=== PATIENT | female | born 1940 | race Caucasian/White ===

== ENCOUNTER 2016-04-25 09:19 | Outpatient (CLI) | payer MEDICARE, OTHER ==
[2016-04-25 12:30] LABS: Bilirubin Negative (Negative); Blood, Urine Negative (Negative); Glucose, Urine (Dipstick) Negative (Negative); Ketone, Urine Negative (Negative); Nitrite Negative (Negative); Protein, Urine (Dipstick) Negative (Neg-Trace); Urobilinogen 0.2 mg/dL (0.2-1.0)
[2016-04-25 12:37] LABS: #Basophils 0.1 thou/uL (0.0-0.2); #Eosinphils 0.3 thou/uL (0.0-0.7); #Lymphocytes 1.2 thou/uL (1.20-3.40); #Monocytes 0.4 thou/uL (0.11-0.59); #Neutrophils 2.4 thou/uL (1.40-6.50); %Basophils 1.6 % (0.0-1.0); %Eosinophils 6.9 % (0.0-10.0); %Lymphocytes 27.2 % (21.0-51.0); %Monocytes 8.3 % (0.0-10.0); Mean Platelet Volume 7.8 fL (7.4-10.4); Red Blood Cell (RBC) Count 4.12 mill/uL (4.20-5.40); White Blood Cell (WBC) Count 4.3 thou/uL (4.8-10.8)
[2016-04-25 12:56] LABS: ALT (SGPT) 12 U/L (0-55); AST (SGOT) 18 U/L (5-34); Alkaline Phosphatase 85 U/L (40-150); Anion Gap 15 mmol/L (10-20); BUN (Urea Nitrogen) 23 mg/dL (9.8-20.1); Bilirubin, Direct 0.2 mg/dL (0.1-0.3); Bilirubin, Total 0.5 mg/dL (0.2-1.2); Calc. Creatinine Clearance 0 mL/min (70-130); Calcium 9.8 mg/dL (7.8-10.44); Carbon Dioxide 25 mmol/L (23-31); Chloride 106 mmol/L (98-107); Estimated GFR-MDRD 68; LDL Cholesterol, Calculated 87 mg/dL; Protein, Total 6.5 g/dL (5.8-8.1)
[2016-04-25 13:17] LABS: Bacteria/HPF Rare-Few HPF (None Seen); RBC/HPF None Seen HPF (0-3); Squamous Epithelial 0-3 HPF (0-3); WBC/HPF 0-3 HPF (0-3)
== END 2016-04-25 09:20 | disposition home or self-care (01) ==
LOC: NAVSJIPCSP 09:19
PROVIDERS: ATTEND Family Medicine
DX: I10 Essential (primary) hypertension (principal)
CPT/HCPCS: 36415; 80048; 80061; 80076; 81003; 81015; 83036; 84443; 85025

== ENCOUNTER 2016-09-26 08:48 | Outpatient (CLI) | payer MEDICARE, OTHER ==
[2016-09-26 13:01] LABS: #Basophils 0.1 thou/uL (0.0-0.2); #Eosinphils 0.2 thou/uL (0.0-0.7); #Lymphocytes 1.1 thou/uL (1.20-3.40); #Monocytes 0.4 thou/uL (0.11-0.59); #Neutrophils 3.1 thou/uL (1.40-6.50); %Basophils 1.5 % (0.0-1.0); %Lymphocytes 23.2 % (21.0-51.0); %Monocytes 8.2 % (0.0-10.0); %Neutrophils 63.1 % (42.0-75.0); Hemoglobin 11.8 g/dL (12.0-16.0); Mean Corpuscular HGB CONC 31.2 g/dL (32.0-36.0); Mean Corpuscular Hemoglobin 27.9 pg (27.0-31.0); Mean Corpuscular Volume 89.2 fl (81.0-99.0); Mean Platelet Volume 7.7 fL (7.4-10.4); Platelet Count 169 thou/uL (130-400); RBC Distribution Width 13.9 % (11.5-14.5); Red Blood Cell (RBC) Count 4.25 mill/uL (4.20-5.40); White Blood Cell (WBC) Count 4.9 thou/uL (4.8-10.8)
[2016-09-26 14:00] LABS: ALT (SGPT) 14 U/L (8-55); AST (SGOT) 20 U/L (5-34); Albumin 3.9 g/dL (3.4-4.8); Alkaline Phosphatase 81 U/L (40-150); Anion Gap 14 mmol/L (10-20); BUN (Urea Nitrogen) 23 mg/dL (9.8-20.1); Bilirubin, Direct 0.3 mg/dL (0.1-0.3); Bilirubin, Total 0.6 mg/dL (0.2-1.2); Calc. Creatinine Clearance 0 mL/min (70-130); Calcium 10.3 mg/dL (7.8-10.44); Carbon Dioxide 27 mmol/L (23-31); Cardiac Risk 2.4 (Less than 4.5); Chloride 105 mmol/L (98-107); Cholesterol 160 mg/dl (< 200 Desired); Estimated GFR-MDRD 67; Glucose 151 mg/dL (83-110); HDL Cholesterol 68 mg/dL (>60 Neg Risk); LDL Cholesterol, Calculated 86 mg/dL; Potassium 4.7 mmol/L (3.5-5.1); Protein, Total 6.4 g/dL (6.0-8.3); Sodium 141 mmol/L (136-145); Triglycerides 32 mg/dL (Less than 150)
[2016-09-26 14:33] LABS: Hemoglobin A1c 7.1 % (4.0-6.0)
== END 2016-09-26 08:49 | disposition home or self-care (01) ==
LOC: NAVSJIPCSP 08:48
PROVIDERS: ATTEND Family Medicine
DX: E11.9 Type 2 diabetes mellitus without complications (principal); I10 Essential (primary) hypertension; M19.90 Unspecified osteoarthritis, unspecified site; F32.9 Major depressive disorder, single episode, unspecified; J30.9 Allergic rhinitis, unspecified; B02.23 Postherpetic polyneuropathy; Z79.899 Other long term (current) drug therapy
CPT/HCPCS: 36415; 80048; 80061; 80076; 83036; 84443; 85025

== ENCOUNTER 2022-12-06 09:35 | Inpatient (IN) | payer MEDICARE ==
[2022-12-06] MEDS ORDERED: Bisacodyl 5 MG TAB PO PRN (15:07)
[2022-12-06] MEDS ORDERED: Ondansetron ODT 4 MG TAB SL PRN (15:07)
[2022-12-06] MEDS ORDERED: Acetaminophen 325 MG TAB PO PRN (15:07)
[2022-12-06] MEDS ORDERED: Senokot S 8.6-50 MG TAB PO PRN (15:07)
[2022-12-06] MEDS ORDERED: Dextrose 50% Abboject 50 ML SYRINGE SLOW IVP PRN (15:15)
[2022-12-06] MEDS ORDERED: Glucagon 1 MG/ML KIT IM PRN (15:15)
[2022-12-06] MEDS ORDERED: HumaLOG 300 UNITS/3 ML VIAL ONE (17:13)
[2022-12-06] MEDS: FLUoxetine HCl 10 MG CAP PO SCH (20:49)
[2022-12-06] MEDS: Ciprofloxacin 500 MG TAB PO SCH (20:49)
[2022-12-06] MEDS: HumaLOG 300 UNITS/3 ML VIAL SC PRN (20:49)
[2022-12-06] MEDS: Gabapentin 300 MG CAP PO SCH (20:50)
[2022-12-06] MEDS ORDERED: Lantus 1000 UNITS/10 ML VIAL SC SCH (21:00)
[2022-12-06] MEDS ORDERED: Donepezil HCl 10 MG TAB PO SCH (21:00)
[2022-12-07] MEDS: Ciprofloxacin 500 MG TAB PO SCH ×2 (06:02→21:21)
[2022-12-07 06:03] LABS: #Basophils 0.1 thou/uL (0.0-0.2); #Eosinphils 0.4 thou/uL (0.0-0.7); #Lymphocytes 0.8 thou/uL (1.20-3.40); #Monocytes 0.5 thou/uL (0.11-0.59); #Neutrophils 4.4 thou/uL (1.40-6.50); %Basophils 1.3 % (0.0-1.0); %Eosinophils 5.8 % (0.0-10.0); %Lymphocytes 13.3 % (21.0-51.0); %Monocytes 7.6 % (0.0-10.0); Hematocrit 26.3 % (36.0-47.0); Hemoglobin 8.5 g/dL (12.0-16.0); Mean Corpuscular HGB CONC 32.1 g/dL (32.0-36.0); Mean Corpuscular Hemoglobin 27.8 pg (27.0-31.0); Mean Corpuscular Volume 86.7 fl (78.0-98.0); Mean Platelet Volume 7.3 fL (7.4-10.4); Platelet Count 273 10x3/uL (130-400); RBC Distribution Width 16.3 % (11.5-14.5); Red Blood Cell (RBC) Count 3.04 mill/uL (4.20-5.40); White Blood Cell (WBC) Count 6.1 10x3/uL (4.8-10.8)
[2022-12-07 06:17] LABS: ALT (SGPT) 29 U/L (8-55); AST (SGOT) 26 U/L (5-34); Albumin 2.5 g/dL (3.4-4.8); Alkaline Phosphatase 78 U/L (40-110); Anion Gap 9 mmol/L (10-20); BUN (Urea Nitrogen) 22 mg/dL (9.8-20.1); Bilirubin, Total 0.3 mg/dL (0.2-1.2); Calc. Creatinine Clearance 46 mL/min (70-130); Calcium 9.4 mg/dL (7.8-10.44); Carbon Dioxide 27 mmol/L (23-31); Chloride 104 mmol/L (98-107); Estimated GFR 64; Globulin 2.7 g/dL (2.4-3.5); Glucose 121 mg/dL (83-110); Potassium 4.1 mmol/L (3.5-5.1); Protein, Total 5.2 g/dL (5.8-8.1); Sodium 136 mmol/L (136-145)
[2022-12-07] MEDS: Pioglitazone HCl 15 MG TAB PO SCH (08:33)
[2022-12-07] MEDS: Lisinopril 20 MG TAB PO SCH (08:34)
[2022-12-07] MEDS: Gabapentin 300 MG CAP PO SCH ×2 (08:35→21:21)
[2022-12-07] MEDS: Aspirin 81 mg Enteric Coated Tablet PO SCH (08:36)
[2022-12-07] MEDS: Amlodipine 5 MG TAB PO SCH (08:36)
[2022-12-07] MEDS: HumaLOG 300 UNITS/3 ML VIAL SC PRN ×2 (12:28→16:56)
[2022-12-07] MEDS: Lantus 1000 UNITS/10 ML VIAL SC SCH (21:22)
[2022-12-07] MEDS: FLUoxetine HCl 10 MG CAP PO SCH (21:22)
[2022-12-08] MEDS: Ciprofloxacin 500 MG TAB PO SCH ×2 (06:09→21:47)
[2022-12-08] MEDS: Pioglitazone HCl 15 MG TAB PO SCH (07:52)
[2022-12-08] MEDS: Aspirin 81 mg Enteric Coated Tablet PO SCH (07:52)
[2022-12-08] MEDS: Amlodipine 5 MG TAB PO SCH (07:52)
[2022-12-08] MEDS: Lisinopril 20 MG TAB PO SCH (07:53)
[2022-12-08] MEDS: Gabapentin 300 MG CAP PO SCH ×2 (07:53→21:47)
[2022-12-08] MEDS: HumaLOG 300 UNITS/3 ML VIAL SC PRN ×2 (12:33→17:00)
[2022-12-08] MEDS: FLUoxetine HCl 10 MG CAP PO SCH (21:47)
[2022-12-08] MEDS: Lantus 1000 UNITS/10 ML VIAL SC SCH (21:48)
[2022-12-09] MEDS: Ciprofloxacin 500 MG TAB PO SCH (05:51)
[2022-12-09 09:14] LABS: #Basophils 0.1 thou/uL (0.0-0.2); #Eosinphils 0.3 thou/uL (0.0-0.7); #Lymphocytes 0.8 thou/uL (1.20-3.40); #Monocytes 0.4 thou/uL (0.11-0.59); #Neutrophils 4.7 thou/uL (1.40-6.50); %Basophils 1.2 % (0.0-1.0); %Eosinophils 4.2 % (0.0-10.0); %Lymphocytes 12.1 % (21.0-51.0); %Neutrophils 75.5 % (42.0-75.0); Hematocrit 33.1 % (36.0-47.0); Hemoglobin 10.2 g/dL (12.0-16.0); Mean Corpuscular HGB CONC 30.8 g/dL (32.0-36.0); Mean Corpuscular Hemoglobin 27.9 pg (27.0-31.0); Mean Corpuscular Volume 90.6 fl (78.0-98.0); Mean Platelet Volume 7.9 fL (7.4-10.4); Platelet Count 224 10x3/uL (130-400); Red Blood Cell (RBC) Count 3.65 mill/uL (4.20-5.40); White Blood Cell (WBC) Count 6.2 10x3/uL (4.8-10.8)
[2022-12-09 09:32] LABS: Anion Gap 13 mmol/L (10-20); BUN (Urea Nitrogen) 24 mg/dL (9.8-20.1); Calc. Creatinine Clearance 35 mL/min (70-130); Calcium 10.3 mg/dL (7.8-10.44); Carbon Dioxide 21 mmol/L (23-31); Chloride 105 mmol/L (98-107); Estimated GFR 45; Glucose 108 mg/dL (83-110); Sodium 135 mmol/L (136-145)
[2022-12-09] MEDS: Aspirin 81 mg Enteric Coated Tablet PO SCH (09:47)
[2022-12-09] MEDS: Amlodipine 5 MG TAB PO SCH (09:48)
[2022-12-09] MEDS: Pioglitazone HCl 15 MG TAB PO SCH (09:48)
[2022-12-09] MEDS: Lisinopril 20 MG TAB PO SCH (09:48)
[2022-12-09] MEDS: Gabapentin 300 MG CAP PO SCH ×2 (09:49→21:12)
[2022-12-09] MEDS: HumaLOG 300 UNITS/3 ML VIAL SC PRN ×2 (12:01→17:37)
[2022-12-09] MEDS: FLUoxetine HCl 10 MG CAP PO SCH (21:12)
[2022-12-09] MEDS: Lantus 1000 UNITS/10 ML VIAL SC SCH (21:13)
[2022-12-10] MEDS: Ciprofloxacin 500 MG TAB PO SCH (06:20)
[2022-12-10] MEDS ORDERED: [UNRECOGNIZED DRUG - REMARK] IVPB PRN (07:29)
[2022-12-10] MEDS: Pioglitazone HCl 15 MG TAB PO SCH (08:10)
[2022-12-10] MEDS: Aspirin 81 mg Enteric Coated Tablet PO SCH (08:11)
[2022-12-10] MEDS: Lisinopril 20 MG TAB PO SCH (08:11)
[2022-12-10] MEDS: Gabapentin 300 MG CAP PO SCH ×2 (08:11→19:27)
[2022-12-10] MEDS: Amlodipine 5 MG TAB PO SCH (08:12)
[2022-12-10] MEDS: HumaLOG 300 UNITS/3 ML VIAL SC PRN ×2 (12:03→16:44)
[2022-12-10] MEDS: FLUoxetine HCl 10 MG CAP PO SCH (19:27)
[2022-12-10] MEDS: Lantus 1000 UNITS/10 ML VIAL SC SCH (21:05)
[2022-12-11] MEDS: Ciprofloxacin 500 MG TAB PO SCH (05:51)
[2022-12-11] MEDS: Pioglitazone HCl 15 MG TAB PO SCH (15:21)
[2022-12-11] MEDS: Amlodipine 5 MG TAB PO SCH (15:22)
[2022-12-11] MEDS: Lisinopril 20 MG TAB PO SCH (15:22)
[2022-12-11] MEDS: Aspirin 81 mg Enteric Coated Tablet PO SCH (15:23)
[2022-12-11] MEDS: Gabapentin 300 MG CAP PO SCH ×2 (15:24→20:54)
[2022-12-11] MEDS: Lantus 1000 UNITS/10 ML VIAL SC SCH (20:54)
[2022-12-11] MEDS: FLUoxetine HCl 10 MG CAP PO SCH (20:54)
[2022-12-11] MEDS: HumaLOG 300 UNITS/3 ML VIAL SC PRN (20:55)
[2022-12-12] MEDS: Ciprofloxacin 500 MG TAB PO SCH ×2 (05:24→20:55)
[2022-12-12] MEDS: Lisinopril 20 MG TAB PO SCH (10:09)
[2022-12-12] MEDS: Amlodipine 5 MG TAB PO SCH (10:10)
[2022-12-12] MEDS: Pioglitazone HCl 15 MG TAB PO SCH (10:10)
[2022-12-12] MEDS: Aspirin 81 mg Enteric Coated Tablet PO SCH (10:10)
[2022-12-12] MEDS: Gabapentin 300 MG CAP PO SCH ×2 (10:11→20:55)
[2022-12-12] MEDS: HumaLOG 300 UNITS/3 ML VIAL SC PRN ×3 (11:23→21:34)
[2022-12-12] MEDS: FLUoxetine HCl 10 MG CAP PO SCH (20:55)
[2022-12-12] MEDS: Lantus 1000 UNITS/10 ML VIAL SC SCH (20:58)
[2022-12-13] MEDS: Ciprofloxacin 500 MG TAB PO SCH (06:00)
[2022-12-13] MEDS: HumaLOG 300 UNITS/3 ML VIAL SC PRN ×3 (06:08→16:41)
[2022-12-13] MEDS: Aspirin 81 mg Enteric Coated Tablet PO SCH (08:33)
[2022-12-13] MEDS: Gabapentin 300 MG CAP PO SCH ×2 (08:33→21:36)
[2022-12-13] MEDS: Pioglitazone HCl 15 MG TAB PO SCH (08:33)
[2022-12-13] MEDS: Lisinopril 20 MG TAB PO SCH (08:36)
[2022-12-13] MEDS: Amlodipine 5 MG TAB PO SCH (08:36)
[2022-12-13] MEDS: FLUoxetine HCl 10 MG CAP PO SCH (21:36)
[2022-12-13] MEDS: Lantus 1000 UNITS/10 ML VIAL SC SCH (21:36)
[2022-12-13] MEDS: Famotidine 20 MG TAB PO SCH (21:37)
[2022-12-14] MEDS: HumaLOG 300 UNITS/3 ML VIAL SC PRN ×3 (06:13→16:31)
[2022-12-14] MEDS: Ciprofloxacin 500 MG TAB PO SCH (06:13)
[2022-12-14] MEDS: Saccharomyces boulardii 250 MG CAP PO SCH (08:40)
[2022-12-14] MEDS: Gabapentin 300 MG CAP PO SCH ×2 (08:40→21:55)
[2022-12-14] MEDS: Pioglitazone HCl 15 MG TAB PO SCH (08:40)
[2022-12-14] MEDS: Lisinopril 20 MG TAB PO SCH (08:41)
[2022-12-14] MEDS: Amlodipine 5 MG TAB PO SCH (08:41)
[2022-12-14] MEDS: Lantus 1000 UNITS/10 ML VIAL SC SCH (21:54)
[2022-12-14] MEDS: FLUoxetine HCl 10 MG CAP PO SCH (21:54)
[2022-12-14] MEDS: Famotidine 20 MG TAB PO SCH (21:55)
[2022-12-15] MEDS: Ciprofloxacin 500 MG TAB PO SCH (07:00)
[2022-12-15] MEDS: Lisinopril 20 MG TAB PO SCH (08:38)
[2022-12-15] MEDS: Gabapentin 300 MG CAP PO SCH ×2 (08:38→21:00)
[2022-12-15] MEDS: Pioglitazone HCl 15 MG TAB PO SCH (08:38)
[2022-12-15] MEDS: Amlodipine 5 MG TAB PO SCH (08:39)
[2022-12-15] MEDS: Saccharomyces boulardii 250 MG CAP PO SCH (08:39)
[2022-12-15] MEDS: HumaLOG 300 UNITS/3 ML VIAL SC PRN (16:40)
[2022-12-15] MEDS: Lantus 1000 UNITS/10 ML VIAL SC SCH (21:00)
[2022-12-15] MEDS: Famotidine 20 MG TAB PO SCH (21:00)
[2022-12-15] MEDS: FLUoxetine HCl 10 MG CAP PO SCH (21:00)
[2022-12-16] MEDS: Ciprofloxacin 500 MG TAB PO SCH (06:11)
[2022-12-16 06:35] LABS: #Basophils 0.1 thou/uL (0.0-0.2); #Eosinphils 0.2 thou/uL (0.0-0.7); #Lymphocytes 0.7 thou/uL (1.20-3.40); #Monocytes 0.3 thou/uL (0.11-0.59); #Neutrophils 2.2 thou/uL (1.40-6.50); %Basophils 1.6 % (0.0-1.0); %Eosinophils 5.6 % (0.0-10.0); %Lymphocytes 19.3 % (21.0-51.0); %Monocytes 9.8 % (0.0-10.0); %Neutrophils 63.7 % (42.0-75.0); Hematocrit 28.4 % (36.0-47.0); Mean Corpuscular HGB CONC 31.5 g/dL (32.0-36.0); Mean Corpuscular Hemoglobin 28.2 pg (27.0-31.0); Mean Corpuscular Volume 89.3 fl (78.0-98.0); Mean Platelet Volume 8.8 fL (7.4-10.4); Platelet Count 193 10x3/uL (130-400); RBC Distribution Width 18.1 % (11.5-14.5); Red Blood Cell (RBC) Count 3.18 mill/uL (4.20-5.40); White Blood Cell (WBC) Count 3.4 10x3/uL (4.8-10.8)
[2022-12-16 06:41] LABS: Anion Gap 10 mmol/L (10-20); BUN (Urea Nitrogen) 28 mg/dL (9.8-20.1); Calc. Creatinine Clearance 40 mL/min (70-130); Calcium 10.2 mg/dL (7.8-10.44); Carbon Dioxide 25 mmol/L (23-31); Chloride 106 mmol/L (98-107); Estimated GFR 54; Glucose 96 mg/dL (83-110); Potassium 4.2 mmol/L (3.5-5.1); Sodium 137 mmol/L (136-145)
[2022-12-16] MEDS: Pioglitazone HCl 15 MG TAB PO SCH (08:33)
[2022-12-16] MEDS: Saccharomyces boulardii 250 MG CAP PO SCH (08:33)
[2022-12-16] MEDS: Amlodipine 5 MG TAB PO SCH (08:34)
[2022-12-16] MEDS: Gabapentin 300 MG CAP PO SCH ×2 (08:34→21:12)
[2022-12-16] MEDS: Lisinopril 20 MG TAB PO SCH (08:34)
[2022-12-16] MEDS: HumaLOG 300 UNITS/3 ML VIAL SC PRN ×2 (11:45→16:35)
[2022-12-16] MEDS: Famotidine 20 MG TAB PO SCH (21:12)
[2022-12-16] MEDS: FLUoxetine HCl 10 MG CAP PO SCH (21:12)
[2022-12-16] MEDS: Lantus 1000 UNITS/10 ML VIAL SC SCH (21:12)
[2022-12-17] MEDS: Ciprofloxacin 500 MG TAB PO SCH (06:03)
[2022-12-17 06:49] LABS: Hematocrit 29.4 % (36.0-47.0); Hemoglobin 9.3 g/dL (12.0-16.0); Platelet Count 203 10x3/uL (130-400)
[2022-12-17 06:53] LABS: Anion Gap 11 mmol/L (10-20); BUN (Urea Nitrogen) 33 mg/dL (9.8-20.1); Calc. Creatinine Clearance 30 mL/min (70-130); Calcium 10.3 mg/dL (7.8-10.44); Carbon Dioxide 25 mmol/L (23-31); Chloride 105 mmol/L (98-107); Estimated GFR 38; Glucose 133 mg/dL (83-110); Potassium 4.1 mmol/L (3.5-5.1); Sodium 137 mmol/L (136-145)
[2022-12-17] MEDS: Pioglitazone HCl 15 MG TAB PO SCH (08:48)
[2022-12-17] MEDS: Amlodipine 5 MG TAB PO SCH (08:48)
[2022-12-17] MEDS: Gabapentin 300 MG CAP PO SCH ×2 (08:49→20:09)
[2022-12-17] MEDS: Lisinopril 20 MG TAB PO SCH (08:49)
[2022-12-17] MEDS: Saccharomyces boulardii 250 MG CAP PO SCH (08:49)
[2022-12-17] MEDS: HumaLOG 300 UNITS/3 ML VIAL SC PRN ×2 (11:40→16:46)
[2022-12-17] MEDS: Famotidine 20 MG TAB PO SCH (20:09)
[2022-12-17] MEDS: FLUoxetine HCl 10 MG CAP PO SCH (20:09)
[2022-12-17] MEDS: Lantus 1000 UNITS/10 ML VIAL SC SCH (20:10)
[2022-12-18] MEDS: Ciprofloxacin 500 MG TAB PO SCH (06:11)
[2022-12-18] MEDS: Lisinopril 20 MG TAB PO SCH (07:55)
[2022-12-18] MEDS: Gabapentin 300 MG CAP PO SCH ×2 (07:56→20:25)
[2022-12-18] MEDS: Amlodipine 5 MG TAB PO SCH (07:56)
[2022-12-18] MEDS: Saccharomyces boulardii 250 MG CAP PO SCH (07:56)
[2022-12-18] MEDS: Pioglitazone HCl 15 MG TAB PO SCH (07:56)
[2022-12-18 10:25] LABS: #Eosinphils 0.2 thou/uL (0.0-0.7); #Lymphocytes 0.6 thou/uL (1.20-3.40); #Monocytes 0.2 thou/uL (0.11-0.59); #Neutrophils 3.6 thou/uL (1.40-6.50); %Eosinophils 3.7 % (0.0-10.0); %Lymphocytes 11.8 % (21.0-51.0); %Monocytes 5.2 % (0.0-10.0); %Neutrophils 78.2 % (42.0-75.0); Hematocrit 32.4 % (36.0-47.0); Hemoglobin 10.1 g/dL (12.0-16.0); Mean Corpuscular HGB CONC 31.2 g/dL (32.0-36.0); Mean Corpuscular Volume 89.7 fl (78.0-98.0); Mean Platelet Volume 8.5 fL (7.4-10.4); Platelet Count 207 10x3/uL (130-400); RBC Distribution Width 17.8 % (11.5-14.5); Red Blood Cell (RBC) Count 3.62 mill/uL (4.20-5.40); White Blood Cell (WBC) Count 4.6 10x3/uL (4.8-10.8)
[2022-12-18 10:42] LABS: Anion Gap 14 mmol/L (10-20); BUN (Urea Nitrogen) 37 mg/dL (9.8-20.1); Calc. Creatinine Clearance 32 mL/min (70-130); Calcium 10.3 mg/dL (7.8-10.44); Carbon Dioxide 22 mmol/L (23-31); Chloride 104 mmol/L (98-107); Estimated GFR 41; Glucose 208 mg/dL (83-110); Sodium 135 mmol/L (136-145)
[2022-12-18 10:58] LABS: Potassium 4.7 mmol/L (3.5-5.1)
[2022-12-18] MEDS: HumaLOG 300 UNITS/3 ML VIAL SC PRN ×2 (11:42→16:46)
[2022-12-18] MEDS: FLUoxetine HCl 10 MG CAP PO SCH (20:25)
[2022-12-18] MEDS: Famotidine 20 MG TAB PO SCH (20:28)
[2022-12-18] MEDS: Lantus 1000 UNITS/10 ML VIAL SC SCH (20:29)
[2022-12-19] MEDS: Ciprofloxacin 500 MG TAB PO SCH (06:07)
[2022-12-19] MEDS: Gabapentin 300 MG CAP PO SCH ×2 (07:58→20:59)
[2022-12-19] MEDS: Pioglitazone HCl 15 MG TAB PO SCH (07:59)
[2022-12-19] MEDS: Lisinopril 20 MG TAB PO SCH (07:59)
[2022-12-19] MEDS: Saccharomyces boulardii 250 MG CAP PO SCH (07:59)
[2022-12-19] MEDS: Amlodipine 5 MG TAB PO SCH (08:49)
[2022-12-19] MEDS: HumaLOG 300 UNITS/3 ML VIAL SC PRN ×2 (16:41→21:06)
[2022-12-19] MEDS: FLUoxetine HCl 10 MG CAP PO SCH (20:59)
[2022-12-19] MEDS: Lantus 1000 UNITS/10 ML VIAL SC SCH (21:00)
[2022-12-19] MEDS: Famotidine 20 MG TAB PO SCH (21:00)
[2022-12-20] MEDS: Ciprofloxacin 500 MG TAB PO SCH (05:35)
[2022-12-20] MEDS: Amlodipine 5 MG TAB PO SCH (08:08)
[2022-12-20] MEDS: Saccharomyces boulardii 250 MG CAP PO SCH (08:09)
[2022-12-20] MEDS: Lisinopril 20 MG TAB PO SCH (08:09)
[2022-12-20] MEDS: Pioglitazone HCl 15 MG TAB PO SCH (08:09)
[2022-12-20] MEDS: Gabapentin 300 MG CAP PO SCH ×2 (08:11→21:04)
[2022-12-20] MEDS: HumaLOG 300 UNITS/3 ML VIAL SC PRN ×2 (11:31→17:09)
[2022-12-20] MEDS: Famotidine 20 MG TAB PO SCH (21:04)
[2022-12-20] MEDS: FLUoxetine HCl 10 MG CAP PO SCH (21:04)
[2022-12-20] MEDS: Lantus 1000 UNITS/10 ML VIAL SC SCH (21:05)
[2022-12-21] MEDS: Ciprofloxacin 500 MG TAB PO SCH (06:12)
[2022-12-21] MEDS: Amlodipine 5 MG TAB PO SCH (09:01)
[2022-12-21] MEDS: Saccharomyces boulardii 250 MG CAP PO SCH (09:01)
[2022-12-21] MEDS: Pioglitazone HCl 15 MG TAB PO SCH (09:02)
[2022-12-21] MEDS: Gabapentin 300 MG CAP PO SCH ×2 (09:03→21:03)
[2022-12-21] MEDS: Lisinopril 20 MG TAB PO SCH (09:03)
[2022-12-21] MEDS: HumaLOG 300 UNITS/3 ML VIAL SC PRN ×2 (12:03→16:55)
[2022-12-21] MEDS: Lantus 1000 UNITS/10 ML VIAL SC SCH (21:00)
[2022-12-21] MEDS: FLUoxetine HCl 10 MG CAP PO SCH (21:02)
[2022-12-21] MEDS: Famotidine 20 MG TAB PO SCH (21:02)
[2022-12-22] MEDS: Ciprofloxacin 500 MG TAB PO SCH (06:18)
[2022-12-22] MEDS: Pioglitazone HCl 15 MG TAB PO SCH (09:12)
[2022-12-22] MEDS: Lisinopril 20 MG TAB PO SCH (09:12)
[2022-12-22] MEDS: Amlodipine 5 MG TAB PO SCH (09:14)
[2022-12-22] MEDS: Gabapentin 300 MG CAP PO SCH ×2 (09:14→21:04)
[2022-12-22] MEDS: Saccharomyces boulardii 250 MG CAP PO SCH (09:16)
[2022-12-22] MEDS: HumaLOG 300 UNITS/3 ML VIAL SC PRN ×3 (11:28→21:25)
[2022-12-22] MEDS: FLUoxetine HCl 10 MG CAP PO SCH (21:04)
[2022-12-22] MEDS: Famotidine 20 MG TAB PO SCH (21:04)
[2022-12-22] MEDS: Lantus 1000 UNITS/10 ML VIAL SC SCH (21:04)
[2022-12-22] MEDS: Clotrimazole 1% Cream 15 GM TUBE TOP SCH (21:05)
[2022-12-23] MEDS: Clotrimazole 1% Cream 15 GM TUBE TOP SCH ×2 (08:40→20:42)
[2022-12-23] MEDS: Saccharomyces boulardii 250 MG CAP PO SCH ×2 (08:40→08:42)
[2022-12-23] MEDS: Gabapentin 300 MG CAP PO SCH ×2 (08:40→20:41)
[2022-12-23] MEDS: Pioglitazone HCl 15 MG TAB PO SCH (08:41)
[2022-12-23] MEDS: Lisinopril 20 MG TAB PO SCH (09:01)
[2022-12-23] MEDS: Fluconazole 100 MG TAB PO SCH (09:06)
[2022-12-23] MEDS: Amlodipine 5 MG TAB PO SCH (09:07)
[2022-12-23] MEDS: HumaLOG 300 UNITS/3 ML VIAL SC PRN ×2 (12:00→16:29)
[2022-12-23] MEDS: Famotidine 20 MG TAB PO SCH (20:40)
[2022-12-23] MEDS: FLUoxetine HCl 10 MG CAP PO SCH (20:40)
[2022-12-23] MEDS: Lantus 1000 UNITS/10 ML VIAL SC SCH (20:41)
[2022-12-24 05:33] VITALS: BMI 24.5
[2022-12-24] MEDS: Saccharomyces boulardii 250 MG CAP PO SCH (08:04)
[2022-12-24] MEDS: Lisinopril 20 MG TAB PO SCH (08:04)
[2022-12-24] MEDS: Pioglitazone HCl 15 MG TAB PO SCH (08:04)
[2022-12-24] MEDS: Amlodipine 5 MG TAB PO SCH (08:05)
[2022-12-24] MEDS: Gabapentin 300 MG CAP PO SCH ×2 (08:06→20:54)
[2022-12-24] MEDS: Fluconazole 100 MG TAB PO SCH (08:06)
[2022-12-24] MEDS: Clotrimazole 1% Cream 15 GM TUBE TOP SCH ×2 (08:07→21:13)
[2022-12-24] MEDS ORDERED: Artificial Tear Sol 15 ML BOT EA EYE PRN (09:12)
[2022-12-24] MEDS: HumaLOG 300 UNITS/3 ML VIAL SC PRN ×2 (11:34→17:06)
[2022-12-24] MEDS: Famotidine 20 MG TAB PO SCH (20:55)
[2022-12-24] MEDS: FLUoxetine HCl 10 MG CAP PO SCH (20:55)
[2022-12-24] MEDS: Lantus 1000 UNITS/10 ML VIAL SC SCH (20:55)
[2022-12-25 05:53] LABS: #Eosinphils 0.3 thou/uL (0.0-0.7); #Lymphocytes 0.8 thou/uL (1.20-3.40); #Monocytes 0.4 thou/uL (0.11-0.59); #Neutrophils 2.2 thou/uL (1.40-6.50); %Basophils 1.1 % (0.0-1.0); %Eosinophils 9.1 % (0.0-10.0); %Lymphocytes 21.8 % (21.0-51.0); Hematocrit 27.2 % (36.0-47.0); Hemoglobin 8.7 g/dL (12.0-16.0); Mean Corpuscular HGB CONC 31.9 g/dL (32.0-36.0); Mean Corpuscular Hemoglobin 28.7 pg (27.0-31.0); Mean Corpuscular Volume 89.7 fl (78.0-98.0); Mean Platelet Volume 8.6 fL (7.4-10.4); Platelet Count 166 10x3/uL (130-400); RBC Distribution Width 17.1 % (11.5-14.5); Red Blood Cell (RBC) Count 3.03 mill/uL (4.20-5.40); White Blood Cell (WBC) Count 3.8 10x3/uL (4.8-10.8)
[2022-12-25 06:10] LABS: Anion Gap 10 mmol/L (10-20); Calc. Creatinine Clearance 46 mL/min (70-130); Calcium 9.6 mg/dL (7.8-10.44); Carbon Dioxide 25 mmol/L (23-31); Chloride 107 mmol/L (98-107); Estimated GFR 65; Glucose 100 mg/dL (83-110); Potassium 3.9 mmol/L (3.5-5.1); Sodium 138 mmol/L (136-145)
[2022-12-25] MEDS: Fluconazole 100 MG TAB PO SCH (09:03)
[2022-12-25] MEDS: Gabapentin 300 MG CAP PO SCH ×2 (09:04→21:06)
[2022-12-25] MEDS: Pioglitazone HCl 15 MG TAB PO SCH (09:05)
[2022-12-25] MEDS: Lisinopril 20 MG TAB PO SCH (09:13)
[2022-12-25] MEDS: Amlodipine 5 MG TAB PO SCH (09:14)
[2022-12-25] MEDS: Clotrimazole 1% Cream 15 GM TUBE TOP SCH ×2 (09:15→21:07)
[2022-12-25] MEDS ORDERED: Saccharomyces boulardii 250 MG CAP PO SCH (09:15)
[2022-12-25] MEDS: HumaLOG 300 UNITS/3 ML VIAL SC PRN ×2 (11:40→17:09)
[2022-12-25 12:43] LABS: BUN (Urea Nitrogen) 29 mg/dL (9.8-20.1)
[2022-12-25] MEDS ORDERED: Famotidine 20 MG TAB PO SCH (21:00)
[2022-12-25] MEDS: FLUoxetine HCl 10 MG CAP PO SCH (21:05)
[2022-12-25] MEDS: Lantus 1000 UNITS/10 ML VIAL SC SCH (21:07)
[2022-12-26] MEDS: Saccharomyces boulardii 250 MG CAP PO SCH (08:56)
[2022-12-26] MEDS: Fluconazole 100 MG TAB PO SCH (08:56)
[2022-12-26] MEDS: Amlodipine 5 MG TAB PO SCH (08:56)
[2022-12-26] MEDS: Lisinopril 20 MG TAB PO SCH (08:57)
[2022-12-26] MEDS: Pioglitazone HCl 15 MG TAB PO SCH (08:58)
[2022-12-26] MEDS: Gabapentin 300 MG CAP PO SCH (08:58)
[2022-12-26] MEDS: Clotrimazole 1% Cream 15 GM TUBE TOP SCH (08:59)
[2022-12-26] MEDS: HumaLOG 300 UNITS/3 ML VIAL SC PRN ×2 (11:54→16:14)
[2022-12-26 19:58] VITALS: BP 125/56; TEMP 98
== END 2022-12-26 20:05 | DRG 948 ==
LOC: NAV ACUTE 16:42
PROVIDERS: ADMIT Family Medicine; ATTEND Family Medicine
DX: R53.81 Other malaise (principal); N13.6 Pyonephrosis; E11.9 Type 2 diabetes mellitus without complications; F03.90 Unspecified dementia, unspecified severity, without behavioral disturbance, psychotic disturbance, mood disturbance, and anxiety; I10 Essential (primary) hypertension; Z96.651 Presence of right artificial knee joint; Z66 Do not resuscitate; R53.1 Weakness; L30.4 Erythema intertrigo; R32 Unspecified urinary incontinence; L89.152 Pressure ulcer of sacral region, stage 2; Z98.890 Other specified postprocedural states; Z88.2 Allergy status to sulfonamides; Z88.8 Allergy status to other drugs, medicaments and biological substances; Z88.1 Allergy status to other antibiotic agents; Z79.899 Other long term (current) drug therapy; Z79.82 Long term (current) use of aspirin
CPT/HCPCS: 36415; 36416; 80048; 80053; 82565; 85014; 85018; 85025; 85049; 97602; J1650; J1815

== ENCOUNTER 2023-10-26 14:49 | Emergency (ER) | payer MEDICARE, OTHER ==
[2023-10-26] MEDS ORDERED: Ondansetron PF 4 MG/2 ML Vial ONE (16:26)
[2023-10-26] MEDS ORDERED: Morphine 2 MG/ML VIAL ONE (16:26)
[2023-10-26 16:55] LABS: #Lymphocytes 0.4 thou/uL (1.20-3.40); #Monocytes 0.6 thou/uL (0.11-0.59); #Neutrophils 9.9 thou/uL (1.40-6.50); %Basophils 0.4 % (0.0-1.0); %Eosinophils 0.2 % (0.0-10.0); %Lymphocytes 3.8 % (21.0-51.0); %Monocytes 5.5 % (0.0-10.0); %Neutrophils 90.2 % (42.0-75.0); Hematocrit 34.4 % (36.0-47.0); Mean Corpuscular HGB CONC 32.1 g/dL (32.0-36.0); Mean Corpuscular Hemoglobin 29.8 pg (27.0-31.0); Mean Corpuscular Volume 92.7 fl (78.0-98.0); Mean Platelet Volume 7.9 fL (7.4-10.4); Platelet Count 136 10x3/uL (130-400); White Blood Cell (WBC) Count 10.9 10x3/uL (4.8-10.8)
[2023-10-26 17:00] LABS: Prothrombin Time 13.2 sec (12.0-14.7)
[2023-10-26 17:01] LABS: PTT 29.7 sec (22.9-36.1)
[2023-10-26 17:06] LABS: ALT (SGPT) 19 U/L (8-55); AST (SGOT) 23 U/L (5-34); Albumin 3.5 g/dL (3.4-4.8); Alkaline Phosphatase 72 U/L (40-110); Anion Gap 14 mmol/L (10-20); BUN (Urea Nitrogen) 28 mg/dL (9.8-20.1); Bilirubin, Total 0.6 mg/dL (0.2-1.2); Calc. Creatinine Clearance 0 mL/min (70-130); Calcium 10.2 mg/dL (7.8-10.44); Carbon Dioxide 26 mmol/L (23-31); Chloride 104 mmol/L (98-107); Estimated GFR 69; Globulin 2.6 g/dL (2.4-3.5); Glucose 152 mg/dL (83-110); Potassium 3.7 mmol/L (3.5-5.1); Protein, Total 6.1 g/dL (5.8-8.1); Sodium 140 mmol/L (136-145)
== END 2023-10-26 18:25 | disposition short-term general hospital (02) ==
LOC: NAV ERS 14:49
DX: S32.502A Unspecified fracture of left pubis, initial encounter for closed fracture (principal); S32.402A Unspecified fracture of left acetabulum, initial encounter for closed fracture; E11.9 Type 2 diabetes mellitus without complications; I10 Essential (primary) hypertension; Z79.899 Other long term (current) drug therapy; Z79.4 Long term (current) use of insulin; W22.8XXA Striking against or struck by other objects, initial encounter
CPT/HCPCS: 36416; 72170; 80053; 85025; 85610; 85730; 96374; 96375; J2272; J2405